=== PATIENT | male | born 1990 | race African-American/Black ===

== ENCOUNTER 2019-03-12 10:07 | Emergency (ER) | payer OTHER ==
[~2019-03-12] VITALS: Ht 180.3 cm; Wt 113.4 kg
[2019-03-12 10:37] VITALS: BP 110/73
[2019-03-12 10:39] VITALS: BP 120/75
[2019-03-12 10:40] VITALS: BP 135/87
[2019-03-12 10:57] VITALS: BP 135/87
--- NOTE | 2019-03-12 11:08 | NUR ---
ED Nurse Note: pt came in via [id number] and [employer] [id number] officer Debra Serial #[id number] and his partner. pt in custody had a anxiety attack . pt placed on monitor blood sent orthostatics done ivf up infusing will monitor.
[2019-03-12 11:58] LABS: ALANINE AMINOTRANSFERASE 23 U/L (12-78); ALBUMIN 3.8 G/DL (3.4-5.0); ALKALINE PHOSPHATASE 77 U/L (46-116); ASPARTATE AMINO TRANSFERASE 16 U/L (15-37); BILIRUBIN,TOTAL 0.3 MG/DL (0.2-1.0); BLOOD UREA NITROGEN 16 mg/dL (7-18); CARBON DIOXIDE 24 MMOL/L (21-32); CKMB 0.8 NG/ML (0.0-3.6); CREATININE 1.1 MG/DL (0.55-1.30)
[2019-03-12 12:06] LABS: CHLORIDE 109 MMOL/L (98-107); POTASSIUM 3.7 MMOL/L (3.5-5.1); SODIUM 144 MMOL/L (136-145)
[2019-03-12 12:43] VITALS: BP 119/75
--- NOTE | 2019-03-12 12:46 | NUR ---
ER DISCHARGE NOTE: Patient is cleared to be discharged per ERMD, pt is aox4, on room air, with stable vital signs. pt was given dc instructions, pt was able to verbalize understanding, pt id band and iv site removed without complications. pt is able to ambulate with steady gait. pt took all belongings.Pt in custody of [employer] pt walked out with [employer].
--- NOTE | 2019-03-12 21:43 | Emergency Room Report ---
History of Present Illness General Chief Complaint: Behavioral Complaint Source: EMS Present Illness Allergies: Coded Allergies: No Known Allergies (Unverified , 03/12/19) Patient History Reviewed Nursing Documentation: PMH: Agreed; PSxH: Agreed Nursing Documentation-PMH Past Medical History: No History, Except For Hx Asthma: Yes Physical Exam Vital Signs Date Time Temp Pulse Resp B/P (MAP) Pulse Ox O2 Delivery O2 Flow Rate FiO2 03/12/19 10:02 98.1 80 18 146/86 (106) 98 Room Air Medical Decision Making Diagnostic Impression: Primary Impression: Dizziness Additional Impression: Dehydration Laboratory Tests Test 03/12/19 10:50 Sodium Level 144 MMOL/L (136-145) Potassium Level 3.7 MMOL/L (3.5-5.1) Chloride Level 109 MMOL/L (98-107) H Carbon Dioxide Level 24 MMOL/L (21-32) Blood Urea Nitrogen 16 mg/dL (7-18) Creatinine 1.1 MG/DL (0.55-1.30) Estimate Glomerular Filtration Rate > 60 mL/min (>60) Glucose Level 98 MG/DL (74-106) Calcium Level 9.0 MG/DL (8.5-10.1) Total Bilirubin 0.3 MG/DL (0.2-1.0) Aspartate Amino Transferase (AST) 16 U/L (15-37) Alanine Aminotransferase (ALT) 23 U/L (12-78) Alkaline Phosphatase 77 U/L (46-116) Creatine Kinase MB 0.8 NG/ML (0.0-3.6) Total Protein 7.5 G/DL (6.4-8.2) Albumin 3.8 G/DL (3.4-5.0) Globulin 3.7 g/dL Albumin/Globulin Ratio 1.0 (1.0-2.7) Last Vital Signs Date Time Temp Pulse Resp B/P (MAP) Pulse Ox O2 Delivery O2 Flow Rate FiO2 03/12/19 12:43 98.1 60 12 119/75 100 Room Air Disposition: HOME, SELF-CARE Condition: Stable Referrals: NOT CHOSEN IPA/,REFERRING (PCP) Departure Forms: Longterm Clearance Patient Instructions: Dehydration, Adult Leighton Mittal MD Mar 12, 2019 21:43
== END 2019-03-12 12:48 | disposition home or self-care (01) ==
LOC: EDBD 10:07 → EMR 11:00
DX: R42 Dizziness and giddiness (principal); E86.0 Dehydration; J45.909 Unspecified asthma, uncomplicated
CPT/HCPCS: 36415; 80053; 82553; 96360; 99284

== ENCOUNTER 2019-03-12 14:03 | Emergency (ER) | payer OTHER ==
[~2019-03-12] VITALS: Ht 180.3 cm; Wt 99.8 kg
[2019-03-12 14:03] VITALS: BP 160/1
[2019-03-12] MEDS ORDERED: LORazepam Inj 2mg/ml 1ml IM ONE (14:15)
[2019-03-12] MEDS ORDERED: LORazepam Inj 2mg/ml 1ml IV ONE (14:15)
[2019-03-12] MEDS ORDERED: DiphenhydrAMINE 50mg/ml Inj IM ONE (14:15)
[2019-03-12] MEDS ORDERED: Ketorolac 30mg Inj IV ONE (14:15)
[2019-03-12] MEDS ORDERED: Haloperidol 5mg/ml Inj IM ONE (14:15)
--- NOTE | 2019-03-12 14:20 | Emergency Room Report ---
History of Present Illness General Chief Complaint: Behavioral Complaint Source: Patient Present Illness HPI 28-year-old male history of anxiety presents with chest ache to arrival after he found out that his friends were being released and he was going to be both in halfway, he denies shortness of breath, he states the ache is similar to when he had a panic attack in the past, no nausea no vomiting, he endorses right chest ache aggravated by stress alleviated by rest, verity is mild, symptoms are constant Allergies: Coded Allergies: No Known Allergies (Unverified , 03/12/19) Patient History Past Medical History: see triage record Reviewed Nursing Documentation: PMH: Agreed; PSxH: Agreed Nursing Documentation-PMH Hx Asthma: Yes Review of Systems All Other Systems: negative except mentioned in HPI Physical Exam Vital Signs Date Time Temp Pulse Resp B/P (MAP) Pulse Ox O2 Delivery O2 Flow Rate FiO2 03/12/19 13:53 97.5 85 18 144/96 (112) 98 Room Air Sp02 EP Interpretation: reviewed, normal General Appearance: well appearing, no apparent distress, alert Head: normocephalic, atraumatic Eyes: bilateral eye PERRL, bilateral eye EOMI ENT: uvula midline, moist mucus membranes Neck: supple, thyroid normal, supple/symm/no masses Respiratory: lungs clear, no respiratory distress, no retraction, no accessory muscle use Cardiovascular #1: normal peripheral pulses, regular rate, rhythm, no edema, no gallop, no murmur Gastrointestinal: non tender, soft, no guarding, no rebound Musculoskeletal: normal inspection Neurologic: alert, oriented x3 Psychiatric: mood/affect normal Skin: no rash, warm/dry Medical Decision Making Diagnostic Impression: Primary Impression: Chest pain Qualified Codes: R07.9 - Chest pain, unspecified ER Course 28-year-old male presents with atypical chest pain, troponin negative, EKG negative, on the differential includes secondary gain to avoid halfway time ACS, pneumonia, pneumothorax EKG negative troponin negative Reevaluation at 3:49 PM, chest pain is resolved without any intervention, patient is sitting comfortably in bed Disposition back to law enforcement Laboratory Tests Test 03/12/19 15:00 White Blood Count 7.8 K/UL (4.8-10.8) Red Blood Count 4.92 M/UL (4.70-6.10) Hemoglobin 13.9 G/DL (14.2-18.0) L Hematocrit 42.4 % (42.0-52.0) Mean Corpuscular Volume 86 FL (80-99) Mean Corpuscular Hemoglobin 28.2 PG (27.0-31.0) Mean Corpuscular Hemoglobin Concent 32.8 G/DL (32.0-36.0) Red Cell Distribution Width 12.4 % (11.6-14.8) Platelet Count 288 K/UL (150-450) Mean Platelet Volume 7.0 FL (6.5-10.1) Neutrophils (%) (Auto) 67.7 % (45.0-75.0) Lymphocytes (%) (Auto) 21.8 % (20.0-45.0) Monocytes (%) (Auto) 8.3 % (1.0-10.0) Eosinophils (%) (Auto) 0.8 % (0.0-3.0) Basophils (%) (Auto) 1.4 % (0.0-2.0) Sodium Level 144 MMOL/L (136-145) Potassium Level 3.6 MMOL/L (3.5-5.1) Chloride Level 109 MMOL/L (98-107) H Carbon Dioxide Level 22 MMOL/L (21-32) Anion Gap 13 mmol/L (5-15) Blood Urea Nitrogen 13 mg/dL (7-18) Creatinine 0.8 MG/DL (0.55-1.30) Estimate Glomerular Filtration Rate > 60 mL/min (>60) Glucose Level 102 MG/DL (74-106) Calcium Level 8.5 MG/DL (8.5-10.1) Total Bilirubin 0.3 MG/DL (0.2-1.0) Aspartate Amino Transferase (AST) 13 U/L (15-37) L Alanine Aminotransferase (ALT) 19 U/L (12-78) Alkaline Phosphatase 58 U/L (46-116) Total Creatine Kinase 155 U/L (26-308) Creatine Kinase MB 1.8 NG/ML (0.0-3.6) Creatine Kinase MB Relative Index 1.1 Troponin I 0.000 ng/mL (0.000-0.056) Total Protein 6.9 G/DL (6.4-8.2) Albumin 3.5 G/DL (3.4-5.0) Globulin 3.4 g/dL Albumin/Globulin Ratio 1.0 (1.0-2.7) Lipase 121 U/L (73-393) Urine Opiates Screen Negative (NEGATIVE) Urine Barbiturates Screen Negative (NEGATIVE) Phencyclidine (PCP) Screen Negative (NEGATIVE) Urine Amphetamines Screen Positive (NEGATIVE) H Urine Benzodiazepines Screen Negative (NEGATIVE) Urine Cocaine Screen Negative (NEGATIVE) Urine Marijuana (THC) Screen Positive (NEGATIVE) H EKG Diagnostic Results EKG Time: 14:06 EP Interpretation: NSR, rate 70, QTc 408, no acute ST elevations, normal axis Rate: normal Rhythm: NSR ST Segments: no acute changes Chest X-Ray Diagnostic Results Chest X-Ray Diagnostic Results : Chest X-Ray Ordered: Yes # of Views/Limited/Complete: 1 View Indication: Chest Pain EP Interpretation: Yes Interpretation: no consolidation, no effusion, no pneumothorax, no acute cardiopulmonary disease Impression: No acute disease Electronically Signed by: Juan Hawkins MD Last Vital Signs Date Time Temp Pulse Resp B/P (MAP) Pulse Ox O2 Delivery O2 Flow Rate FiO2 03/12/19 14:03 97.5 88 20 160/1 98 Room Air Disposition: D/C TO LAW ENFORCEMENT IN CUST Condition: Stable Departure Forms: Shelter Clearance Patient Instructions: Chest Wall Pain, [id number] Additional Instructions: The patient was provided with discharge instructions, notified to follow-up with a primary care doctor and or specialist in the next 24-48 hours, and to return to the ED if they have worsening of their symptoms. Please note that this report is being documented using [employer] technology. This can lead to erroneous entry secondary to incorrect interpretation by the dictating instrument. Juan Hawkins MD Mar 12, 2019 14:19
--- NOTE | 2019-03-12 15:23 | NUR ---
ED Nurse Note: pt in cust[place] d/c'd earlier today when on his way to [facility] started c/o chest pain . pt came back again in custody with [employer]. blood and urine sent pt medicated on monitor vss
[2019-03-12 15:28] LABS: BASOPHILS % (AUTO) 1.4 % (0.0-2.0); EOSINOPHILS % (AUTO) 0.8 % (0.0-3.0); HEMATOCRIT 42.4 % (42.0-52.0); HEMOGLOBIN 13.9 G/DL (14.2-18.0); LYMPHOCYTES % (AUTO) 21.8 % (20.0-45.0); MEAN CORPUSCULAR VOLUME 86 FL (80-99); MONOCYTES % (AUTO) 8.3 % (1.0-10.0); NEUTROPHILS % (AUTO) 67.7 % (45.0-75.0); PLATELET COUNT 288 K/UL (150-450); RED BLOOD COUNT 4.92 M/UL (4.70-6.10); RED CELL DISTRIBUTION WIDTH 12.4 % (11.6-14.8); WHITE BLOOD COUNT 7.8 K/UL (4.8-10.8)
[2019-03-12 15:31] LABS: ANION GAP 13 mmol/L (5-15); BLOOD UREA NITROGEN 13 mg/dL (7-18); CALCIUM 8.5 MG/DL (8.5-10.1); CARBON DIOXIDE 22 MMOL/L (21-32); CHLORIDE 109 MMOL/L (98-107); CREATININE 0.8 MG/DL (0.55-1.30); POTASSIUM 3.6 MMOL/L (3.5-5.1); SODIUM 144 MMOL/L (136-145)
[2019-03-12 15:44] LABS: ALANINE AMINOTRANSFERASE 19 U/L (12-78); ALBUMIN 3.5 G/DL (3.4-5.0); ALKALINE PHOSPHATASE 58 U/L (46-116); ASPARTATE AMINO TRANSFERASE 13 U/L (15-37); BILIRUBIN,TOTAL 0.3 MG/DL (0.2-1.0); CKMB 1.8 NG/ML (0.0-3.6); CREATINE KINASE 155 U/L (26-308)
[2019-03-12 15:55] VITALS: BP 140/68
--- NOTE | 2019-03-12 17:11 | NUR ---
ER DISCHARGE NOTE: Patient is cleared to be discharged per ERMD, pt is aox4, on room air, with stable vital signs. pt was given dc instructions, pt was able to verbalize understanding, pt id band and iv site removed without complications. pt is able to ambulate with steady gait. pt took all belongings.
--- NOTE | 2019-03-13 10:03 | Diagnostic Imaging Report ---
Indication: Chest pain Technique: One view of the chest Comparison: none Findings: Lungs and pleural spaces are clear. Heart size is normal Impression: No acute process
--- NOTE | 2019-03-13 11:32 | Cardiology Report ---
APPROVED REPORT EKG Measurement Heart [id number] Sinus rhythm with premature atrial complexes Otherwise normal ECG
== END 2019-03-12 15:55 ==
LOC: EDBD 14:03 → EMR 14:57
DX: R07.89 Other chest pain (principal); J45.909 Unspecified asthma, uncomplicated
CPT/HCPCS: 36415; 71045; 80053; 80307; 82550; 82553; 83690; 84484; 85025; 93005; 96361; 96374; 99284; J1885

== ENCOUNTER 2019-05-21 20:30 | Emergency (ER) | payer OTHER ==
[~2019-05-21] VITALS: Ht 175.3 cm; Wt 90.7 kg
--- NOTE | 2019-05-21 20:31 | NUR ---
ED Nurse Note: pt was brought in by ambulance from long term for C/O chest pain since 2 hours ago. Non radiating. pt is alert 4, ambulatory
[2019-05-21 20:33] VITALS: BP 148/80
--- NOTE | 2019-05-21 20:35 | NUR ---
ED Nurse Note: 2 [employer] is at bedside with pt .
--- NOTE | 2019-05-21 20:42 | NUR ---
ED Nurse Note: CXR done at bedside.
--- NOTE | 2019-05-21 20:43 | Emergency Room Report ---
History of Present Illness General Chief Complaint: Medical Clearance Source: Patient Present Illness HPI 28-year-old male history of hypertension, currently being incarcerated as soon as he found out he was being incarcerated complaining of chest tightness no shortness of breath, unknown aggravating relieving factors severity is mild, patient when distracted in the interview no longer complains of the pain, patient denies any nausea vomiting shortness of breath or diaphoresis patient presents for evaluation Allergies: Coded Allergies: No Known Allergies (Unverified , 03/12/19) Patient History Past Medical History: see triage record Social History: Reports: drug use Reviewed Nursing Documentation: PMH: Agreed; PSxH: Agreed Nursing Documentation-PMH Past Medical History: No History, Except For Hx Hypertension: Yes Hx Asthma: Yes Review of Systems All Other Systems: negative except mentioned in HPI Physical Exam Vital Signs Date Time Temp Pulse Resp B/P (MAP) Pulse Ox O2 Delivery O2 Flow Rate FiO2 05/21/19 20:25 98.2 62 18 155/77 (103) 98 Room Air Sp02 EP Interpretation: reviewed General Appearance: well appearing, no apparent distress Head: normocephalic, atraumatic ENT: hearing grossly normal, normal voice Neck: full range of motion, supple Respiratory: no respiratory distress, speaking full sentences Musculoskeletal: no calf tenderness Neurologic: alert, normal gait Psychiatric: mood/affect normal Skin: no rash Medical Decision Making Diagnostic Impression: Primary Impression: Medical clearance for incarceration ER Course 28-year-old male presents with chest pain after finding out he was about to be incarcerated patient when distracted no longer has chest pain doubt emergent pathology at this time EKG negative chest x-ray negative Patient is medically cleared at this time Disposition home with return precautions EKG Diagnostic Results EKG Time: 20:22 EP Interpretation: NSR, rate 61, QTc 410, no acute ST elevations, normal axis Chest X-Ray Diagnostic Results Chest X-Ray Diagnostic Results : Chest X-Ray Ordered: Yes # of Views/Limited/Complete: 1 View Indication: Chest Pain EP Interpretation: Yes Interpretation: no consolidation, no effusion, no pneumothorax, no acute cardiopulmonary disease Impression: No acute disease Electronically Signed by: Juan Hawkins MD Last Vital Signs Date Time Temp Pulse Resp B/P (MAP) Pulse Ox O2 Delivery O2 Flow Rate FiO2 05/21/19 20:33 72 18 Room Air 05/21/19 20:33 98.2 148/80 98 Disposition: D/C TO LAW ENFORCEMENT IN CUST Condition: Stable Referrals: [facility] Rafita Collins. [facility] Departure Forms: Custodial Clearance Patient Instructions: Nonspecific Chest Pain, [id number] Additional Instructions: The patient was provided with discharge instructions, notified to follow-up with a primary care doctor and or specialist in the next 24-48 hours, and to return to the ED if they have worsening of their symptoms. Please note that this report is being documented using [employer] technology. This can lead to erroneous entry secondary to incorrect interpretation by the dictating instrument. Juan Hawkins MD May 21, 2019 20:42
[2019-05-21 20:46] VITALS: BP 144/86
--- NOTE | 2019-05-21 20:46 | NUR ---
ER DISCHARGE NOTE: Patient is cleared to be discharged per ERMD, pt is aox4, on room air, with stable vital signs. dc instructions was given to [employer] and exp[lained to PT and [employer]. pt was able to verbalize understanding, pt id band removed without complications. pt is able to ambulate with steady gait. Pt is currently waiting to be transported back to [facility] accompanied by 2 [employer] staff.
--- NOTE | 2019-05-22 13:00 | Diagnostic Imaging Report ---
Indication: Dyspnea Comparison: March 12, 2019 A single view chest radiograph was obtained. Findings: Cardiomediastinal appearance is within normal limits for age. The lungs are clear. Pulmonary vascularity is appropriate. The diaphragmatic contour is smooth and costophrenic angles are sharp. No pleural effusions are identified. The bones are unremarkable. Impression: No acute findings
== END 2019-05-21 20:46 ==
LOC: EDBD 20:30 → EMR 20:41
DX: R07.9 Chest pain, unspecified (principal); I10 Essential (primary) hypertension
CPT/HCPCS: 71045; 93005; 99283